=== PATIENT | female | born 1935 | race Caucasian/White ===

== ENCOUNTER 2018-06-18 14:02 | Inpatient (IN) | payer MEDICARE, OTHER ==
[~2018-06-18] VITALS: Ht 170.2 cm; Wt 84.3 kg
[2018-06-18 14:12] VITALS: Ht 170.2 cm; Wt 84.3 kg
[2018-06-18] MEDS ORDERED: CEFTRIAXONE 1 GM/50 ML (PMX) 50 ML IVPB ONE (16:00)
[2018-06-18] MEDS ORDERED: AMLO-145 PO (16:00)
[2018-06-18] MEDS ORDERED: ESOM40CA51 PO (16:01)
[2018-06-18] MEDS ORDERED: LOSA50TA14 PO (16:01)
[2018-06-18] MEDS ORDERED: BISA5TAB6 PO (16:01)
[2018-06-18] MEDS ORDERED: MEMA10TA PO (16:02)
[2018-06-18] MEDS ORDERED: ACET-2047 PO (16:04)
[2018-06-18] MEDS ORDERED: ZOLP5TAB7 PO (16:05)
[2018-06-18] MEDS ORDERED: SOD CHLORIDE 0.9% 100 ML ONE (16:27)
[2018-06-18] MEDS ORDERED: IODIXANOL LOCM 100 ML BTL ONE (16:27)
[2018-06-18] MEDS ORDERED: VANCOMYCIN 1 GM (PMX) 250 ML IVPB STA (16:31)
[2018-06-18] MEDS ORDERED: SOD CHLORIDE 0.9% 1,000 ML IV STA (16:31)
[2018-06-18] MEDS ORDERED: CEFEPIME 1GM/50 ML (PMX) 50 ML IVPB STA (16:31)
--- NOTE | 2018-06-18 16:35 | ERD ---
ER Documentation Chief Complaint Chief Complaint HYPOXIA, GENERALIZED WEAKNESS X 3 DAYS HPI 83-year-old female who presents to the emergency room for evaluation of generalized weakness. EMS reports that the patient had low oxygen saturation of 74% given full facemask however the facility noted normal oxygen saturation and patient had normal oxygen saturation in the emergency room. Patient denied any significant shortness of breath, no pain, no pleuritic discomfort. She just describes 3 days of generalized weakness. ROS All systems reviewed and are negative except as per history of present illness. Medications Home Meds Reported Medications Zolpidem Tartrate* (Zolpidem Tartrate*) 5 Mg Tablet, 5 MG PO QHS PRN for INSOMNIA, #30 TAB 06/18/18 Acetaminophen* (Acetaminophen*) 650 Mg Tablet, 650 MG PO Q4 PRN for PAIN AND OR ELEVATED TEMP, #30 TAB 06/18/18 Memantine* (Namenda*) 10 Mg Tablet, 10 MG PO DAILY, #30 TAB 06/18/18 Losartan Potassium* (Losartan Potassium*) 50 Mg Tablet, 50 MG PO DAILY, TAB 06/18/18 Esomeprazole Magnesium (Esomeprazole Magnesium) 40 Mg Capsule.dr, 40 MG PO BE FORE BREAKFAST, #30 CAP 06/18/18 Bisacodyl* (Bisacodyl*) 5 Mg Tablet.dr, 5 MG PO DAILY PRN for CONSTIPATION, TAB 06/18/18 Amlodipine Besylate* (Amlodipine Besylate*) 5 Mg Tablet, 5 MG PO DAILY, #30 TAB 06/18/18 Allergies Allergies: Coded Allergies: No Known Allergy (Unverified , 06/18/18) PMhx/Soc History of Surgery: Yes (PARTIAL THYROIDECTOMY) Anesthesia Reaction: No Hx Neurological Disorder: No Hx Respiratory Disorders: No Hx Cardiac Disorders: No Hx Psychiatric Problems: No Hx Miscellaneous Medical Probl: Yes (GERD, HTN) Hx Alcohol Use: No Hx Substance Use: No Hx Tobacco Use: No Smoking Status: Never smoker FmHx Family History: No diabetes Physical Exam Vitals Vital Signs Date Temp Pulse Resp B/P (MAP) Pulse Ox O2 O2 Flow FiO2 Time Delivery Rate 06/18/18 65 19 155/66 97 Room Air 17:30 (95) 06/18/18 74 24 119/102 97 16:00 (108) 06/18/18 2 14:30 06/18/18 98.3 72 18 140/74 98 14:12 (96) Physical Exam General: Well developed, well nourished, no acute distress Head: Normocephalic, atraumatic. Eyes: Pupils equally reactive, EOM intact ENT: Moist mucous membranes Neck: Supple, no lymphadenopathy Respiratory: Lungs clear bilaterally, no distress Cardiovascular: RRR, no murmurs, rubs, or gallops Abdominal: Soft, non-tender, non-distended, no peritoneal signs : Deferred MSK: No edema, no unilateral swelling, 5/5 strength Neurologic: Alert and oriented, moving all extremities, normal speech, no focal weakness, no cerebellar signs Skin: No rash Psych: Normal mood Result Diagram: 06/18/18 1425 06/18/18 1425 Results 24 hrs Laboratory Tests Test 06/18/18 14:10 06/18/18 14:25 06/18/18 14:35 06/18/18 15:00 Blood Gas Blood arterial Specimen Source Arterial Blood 06/18/2018 2:40: Date Drawn 58 PM Arterial Blood 7.432 pH (Temp corrected ) Arterial Blood 33.3 mmhg pCO2 (Temp correct) Arterial Blood 64.9 mmHG pO2 (Temp corrected ) Arterial Blood 21.7 mmol/L HCO3 Arterial Blood -1.8 mmol/L Base Excess Arterial Blood 93.2 mmHG Oxygen Saturati on Graham Test ACCEPTAB Arterial Blood Right Radial Gas Puncture Site Arterial 0.2 % Blood Carboxyhe moglobin Arterial Blood 0.2 % Methemoglobin Blood Gas A-a 45.0 mmHg O2 Differential Oxyhemoglobin 92.8 % Percent Blood Gas 37.0 C Temperature Blood Gas ROOM AIR Modality FiO2 21.0 % Blood Gas .DSally Notified Whom Blood Gas 06/18/2018 2:48: Notified Time 30 PM White Blood 10.6 10^3/ul Count Red Blood Count 4.29 10^6/ul Hemoglobin 13.3 g/dl Hematocrit 40.7 % Mean 94.9 fl Corpuscular Volume Mean 31.0 pg Corpuscular Hemoglobin Mean 32.7 g/dl Corpuscular Hemoglobin Conc ent Red Cell 12.2 % Distribution Width Platelet Count 183 10^3/UL Mean Platelet 11.2 fl Volume Immature 0.300 % Granulocytes % Neutrophils % 79.2 % Lymphocytes % 9.7 % Monocytes % 9.1 % Eosinophils % 1.4 % Basophils % 0.3 % Nucleated Red 0.0 /100WBC Blood Cells % Immature 0.030 10^3/ul Granulocytes # Neutrophils # 8.4 10^3/ul Lymphocytes # 1.0 10^3/ul Monocytes # 1.0 10^3/ul Eosinophils # 0.2 10^3/ul Basophils # 0.0 10^3/ul Nucleated Red 0.0 10^3/ul Blood Cells # Prothrombin 14.0 Sec Time Prothrombin 1.1 Time Ratio INR 1.07 International Normalized Rati o Activated 26.1 Sec Partial Thrombo plast Time Sodium Level 144 mmol/L Potassium Level 4.2 mmol/L Chloride Level 106 mmol/L Carbon Dioxide 26 mmol/L Level Anion Gap 12 Blood Urea 42 mg/dl Nitrogen Creatinine 1.29 mg/dl Est Glomerular mL/min Filtrat Rate mL/min Glucose Level 141 mg/dl Calcium Level 9.3 mg/dl Total Bilirubin 0.1 mg/dl Direct 0.00 mg/dl Bilirubin Indirect 0.1 mg/dl Bilirubin Aspartate Amino 16 IU/L Transf (AST/SGO T) Alanine 24 IU/L Aminotransferas e (ALT/SGPT) Alkaline 97 IU/L Phosphatase Troponin I < 0.012 ng/ml B-Type 177 PG/ML Natriuretic Peptide Total Protein 6.5 g/dl Albumin 3.3 g/dl Globulin 3.20 g/dl Albumin/Globuli 1.03 n Ratio POC Venous 1.9 mmol/L Lactate Urine Color YELLOW Urine Clarity TURBID Urine pH 8.0 Urine Specific 1.020 [place] Urine Ketones NEGATIVE mg/dL Urine Nitrite POSITIVE mg/dL Urine Bilirubin NEGATIVE mg/dL Urine NEGATIVE mg/dL Urobilinogen Urine Leukocyte 2+ Viviana/ul Esterase Urine 53 /HPF Microscopic RBC Urine > 182 /HPF Microscopic WBC Urine Bacteria FEW /HPF Urine NEGATIVE mg/dL Hemoglobin Urine Glucose NEGATIVE mg/dL Urine Total 3+ mg/dl Protein Test 06/18/18 16:27 POC Venous 1.4 mmol/L Lactate Current Medications Medications Dose Sig/Kris Start Time Status Last (Trade) Ordered Route PRN Stop Time Admin Dose Reason Admin Ceftriaxone 50 ml @ ONCE ONCE 06/18/18 DC 06/18/18 Sodium 100 mls/hr IVPB 16:00 16:00 06/18/18 16:29 IV Flush 10 ml STK-MED 06/18/18 DC (NS 10 ml) ONCE .ROUTE 16:27 06/18/18 16:28 Sodium 100 ml @ ud STK-MED 06/18/18 DC Chloride ONCE .ROUTE 16:27 06/18/18 16:28 Iodixanol 100 ml STK-MED 06/18/18 DC (Visipaque ONCE .ROUTE 16:27 Locm) 06/18/18 16:28 Sodium 1,000 ml @ Q1H STAT 06/18/18 DC 06/18/18 Chloride 1,000 mls/hr IV 16:31 16:48 06/18/18 17:30 Cefepime HCl 50 ml @ ONCE STAT 06/18/18 DC 06/18/18 100 mls/hr IVPB 16:31 16:49 06/18/18 17:00 Vancomycin 250 ml @ ONCE STAT 06/18/18 06/18/18 HCl 125 mls/hr IVPB 16:31 17:51 06/18/18 18:30 Enoxaparin 65 mg ONCE SC 06/18/18 DC 06/18/18 Sodium 17:30 17:28 (Lovenox) 06/18/18 17:35 Ondansetron 4 mg ER BRIDGE 06/18/18 DC HCl (Zofran PRN IV 17:30 Inj) NAUSEA/VOMITI 06/18/18 17:34 NG 650 mg ER BRIDGE 06/18/18 DC Acetaminophen PRN PO 17:30 (Tylenol .MILD PAIN 06/18/18 17:34 Tab) 1-3 OR TEMP Rivaroxaban 15 mg BID WITH 06/19/18 (Xarelto) MEALS PO 06:00 Ceftriaxone 50 ml @ Q24H IVPB 06/19/18 Sodium 100 mls/hr 16:00 650 mg Q4 PRN PO 06/18/18 Acetaminophen MILD 17:30 (Tylenol PAIN(1-3)OR Tab) ELEVATED TEMP Amlodipine 5 mg DAILY PO 06/19/18 Besylate 09:00 (Norvasc) Bisacodyl 5 mg DAILY PRN 06/18/18 (Dulcolax) PO 17:30 CONSTIPATION Zolpidem 5 mg QHS PRN 06/18/18 Tartrate PO INSOMNIA 17:30 (Ambien) Enoxaparin 65 mg ONCE ONCE 06/18/18 DC Sodium SC 18:00 (Lovenox) 06/18/18 18:01 Procedures/MDM EKG, MONITORS, & DIAGNOSTIC IMAGING: EKG: I reviewed and interpreted a 12-lead EKG. Rhythm: Normal sinus rhythm ST Changes: No contiguous ST segment elevations T waves: No contiguous T wave inversions Impression: [No evidence of acute cardiac ischemia] CXR: IMPRESSION: Focal right upper lobe infiltrate, suspicious for pneumonia. Mild bibasilar atelectatic changes. CTPA: IMPRESSION: 1. Prominent pulmonary emboli, most extensive in the right lower lobe. Additional segmental involvement in the right upper lobe and left lower lobe. 2. Moderate cardiomegaly. 3. Large hiatal hernia, with most of the stomach above the diaphragm. 4. Bibasilar atelectasis. Density projecting in the right upper lung on x-ray likely reflects a component of edema as well as tortuosity of the vessels. 5. Probable left thyroid nodule, 1.4 cm. 6. Small sclerotic focus in the right T2 transverse process, which may reflect a bone island. Call report with critical findings made to Dr. Mcgrath. RPTAT: HBST LAB INTERPRETATION: * White blood cell count is normal with only slight left shift. No anemia * Chemistry profile with mild creatinine elevation of 1.29. Lactic acid is normal at 1.9. Negative troponin. * Urinalysis consistent with UTI * Arterial blood gas showing evidence of mild shunt physiology MEDICAL DECISION MAKING: Patient presents to the emergency room with generalized weakness and a report of hypoxia. Differential is broad and includes pneumonia, mucous plugging or pulmonary embolism. Given moderate risk criteria Wells would suggest CTPA. No indication for d-dimer. The patient does not have sirs criteria therefore inconsistent with sepsis. However sepsis screening will be initiated including blood cultures. Lactic acid is reassuring. ER COURSE: * The patient had a urinalysis that showed evidence of urinary tract infection. Ceftriaxone was given chest x-ray resulted showing evidence of possible pneumonia. The patient is at risk for healthcare associated pneumonia. * Patient was given vancomycin and cefepime. * The patient does not meet Sirs criteria in the emergency room setting. This is not consistent with sepsis. Gentle fluids provided. * The patient CTPA shows evidence of pulmonary embolism. This is more likely consistent with PE and possible infection rather than pneumonia. Empiric antibiotics already provided. No contraindications to anticoagulation. Love nox provided. CONSULTATION: [None] DISPOSITION PLAN: Accepting care team and consultations: I discussed the current laboratory data, diagnostic imaging and emergency care provided. Admitting team: Dr Rose Admitting team indication: Insurance directed Departure Diagnosis: Primary Impression: Acute pulmonary embolism Pulmonary embolism type: unspecified Acute cor pulmonale presence: without acute cor pulmonale Qualified Codes: I26.99 - Other pulmonary embolism wit hout acute cor pulmonale Additional Impressions: Urinary tract infection Urinary tract infection type: acute cystitis Hematuria presence: without hematuria Qualified Codes: N30.00 - Acute cystitis without hematuria Generalized weakness Condition: Stable SAMIA MCGRATH MD Jun 18, 2018 16:35
[2018-06-18] MEDS ORDERED: ZOLPIDEM 5 MG TAB PO PRN (17:30)
[2018-06-18] MEDS ORDERED: BISACODYL (EC) 5 MG TAB PO PRN (17:30)
[2018-06-18] MEDS ORDERED: ACETAMINOPHEN 325 MG TAB PO PRN ×2 (17:30)
[2018-06-18] MEDS ORDERED: ENOXAPARIN 80 MG/0.8 ML SYG SC SCH (17:30)
[2018-06-18] MEDS ORDERED: ONDANSETRON 4 MG INJ IV PRN (17:30)
[2018-06-18] MEDS: CEFTRIAXONE 1 GM/50 ML (PMX) 50 ML IVPB SCH (17:51)
[2018-06-18] MEDS ORDERED: ENOXAPARIN 80 MG/0.8 ML SYG SC ONE (18:00)
[2018-06-18 19:00] VITALS: BP 184/81; PULSE 75; RESP 18
--- NOTE | 2018-06-18 19:01 | HP ---
Date/Time of Note Date/Time of Note DATE: 06/18/18 TIME: 18:55 Assessment/Plan VTE Prophylaxis SCD contraindicated: low risk/ambulating Pharmacological prophylaxis: heparin, rivaroxaban Lines/Catheters IV [facility] Saline Lock Assessment/Plan Hospital Course 83 yo female with dementia who presents with pulmonary embolism Pulmonary embolism causing hypoxia: - Has been given lovenox in ED - Will start therapeutic Xarelto 15 BID with first dose 12 hours after lovenox given tomorrow AM - O2 as needed МАРИНА vs CKD: - Hold losartan and monitor creatinine h/o thyroidectomy: - Check TSH Hypertension: - Amlodipine Dc back to [facility] when off of oxygen. Transfer documents don't include a POLST form. Also states she has no known relatives. SW/Case management consult Result Diagram: 06/18/18 1425 06/18/18 1425 Results 24hrs Laboratory Tests Test 06/18/18 14:10 06/18/18 14:25 06/18/18 14:35 06/18/18 15:00 Blood Gas Blood arterial Specimen Source Arterial Blood 06/18/2018 2:40:5 Date Drawn 8 PM Arterial Blood pH 7.432 (Temp corrected) Arterial Blood 33.3 L pCO2 (Temp correct) Arterial Blood 64.9 L pO2 (Temp corrected) Arterial Blood 21.7 L HCO3 Arterial Blood -1.8 Base Excess Arterial Blood 93.2 L Oxygen Saturation Graham Test ACCEPTAB Arterial Blood Right Radial Gas Puncture Site Arterial 0.2 Blood Carboxyhemo globin Arterial Blood 0.2 Methemoglobin Blood Gas A-a O2 45.0 H Differential Oxyhemoglobin 92.8 L Percent Blood Gas 37.0 Temperature Blood Gas ROOM AIR Modality FiO2 21.0 Blood Gas M.D. Notified Whom Blood Gas 06/18/2018 2:48:3 Notified Time 0 PM White Blood Count 10.6 Red Blood Count 4.29 Hemoglobin 13.3 Hematocrit 40.7 Mean Corpuscular 94.9 Volume Mean Corpuscular 31.0 Hemoglobin Mean Corpuscular 32.7 Hemoglobin Concen t Red Cell 12.2 Distribution Width Platelet Count 183 Mean Platelet 11.2 H Volume Immature 0.300 Granulocytes % Neutrophils % 79.2 H Lymphocytes % 9.7 L Monocytes % 9.1 Eosinophils % 1.4 Basophils % 0.3 Nucleated Red 0.0 Blood Cells % Immature 0.030 Granulocytes # Neutrophils # 8.4 H Lymphocytes # 1.0 Monocytes # 1.0 H Eosinophils # 0.2 Basophils # 0.0 Nucleated Red 0.0 Blood Cells # Prothrombin Time 14.0 Prothrombin Time 1.1 Ratio INR International 1.07 Normalized Ratio Activated 26.1 Partial Thrombopl ast Time Sodium Level 144 Potassium Level 4.2 Chloride Level 106 Carbon Dioxide 26 Level Anion Gap 12 Blood Urea 42 H Nitrogen Creatinine 1.29 H Est Glomerular Filtrat Rate mL/min Glucose Level 141 Calcium Level 9.3 Total Bilirubin 0.1 L Direct Bilirubin 0.00 Indirect 0.1 Bilirubin Aspartate Amino 16 Transf (AST/SGOT) Alanine 24 Aminotransferase (ALT/SGPT) Alkaline 97 Phosphatase Troponin I < 0.012 B-Type 177 Natriuretic Peptide Total Protein 6.5 Albumin 3.3 Globulin 3.20 Albumin/Globulin 1.03 Ratio POC Venous 1.9 Lactate Urine Color YELLOW Urine Clarity TURBID A Urine pH 8.0 Urine Specific 1.020 [place] Urine Ketones NEGATIVE Urine Nitrite POSITIVE A Urine Bilirubin NEGATIVE Urine NEGATIVE Urobilinogen Urine Leukocyte 2+ H Esterase Urine Microscopic 53 H RBC Urine Microscopic > 182 H WBC Urine Bacteria FEW A Urine Hemoglobin NEGATIVE Urine Glucose NEGATIVE Urine Total 3+ H Protein Test 06/18/18 16:27 POC Venous 1.4 Lactate HPI/ROS Admit Date/Time Admit Date/Time Jun 18, 2018 at 17:26 Hx of Present Illness 83 yo female with h/o dementia, hypertension, otherwise unclear who presents fr [facility] with hypoxia Patient clearly with dementia and is unable to provide a history Documentation states she had some respiratory distress and found to be hypoxic so brought to ED Here, saturating 70s on room air. CT-PE was performed showing mulitfocal PEs She has been started on lovenox Denies physical complaints to me PMH/Family/Social Past Medical History Dementia Hypertension Medications Current Medications Rivaroxaban (Xarelto) 15 mg BID WITH MEALS PO ; Start 06/19/18 at 06:00 Ceftriaxone Sodium 50 ml @ 100 mls/hr Q24H IVPB ; Start 06/19/18 at 16:00 Acetaminophen (Tylenol Tab) 650 mg Q4 PRN PO MILD PAIN(1-3)OR ELEVATED TEMP; Start 06/18/18 at 17:30 Amlodipine Besylate (Norvasc) 5 mg DAILY PO ; Start 06/19/18 at 09:00 Bisacodyl (Dulcolax) 5 mg DAILY PRN PO CONSTIPATION; Start 06/18/18 at 17:30 Zolpidem Tartrate (Ambien) 5 mg QHS PRN PO INSOMNIA; Start 06/18/18 at 17:30 Coded Allergies: No Known Allergy (Unverified , 06/18/18) Past Surgical History Thyroidectomy Family History Significant Family History: no pertinent family hx Social History Alcohol Use: none Smoking Status: Never smoker Drug Use: none Exam/Review of Systems Vital Signs Vitals Vital Signs Date Temp Pulse Resp B/P (MAP) Pulse Ox O2 O2 Flow FiO2 Time Delivery Rate 06/18/18 88 18 153/113 97 Room Air 18:21 (126) 06/18/18 2.0 18:11 06/18/18 98.3 14:12 Exam Exam Alert, oriented to her name, thinks is 1931 Knows "hosptial". Harness Tier't say what city she is in breathing comfortably, clear lungs Flat neck veins RRR Abdomen soft nt nd Ext wihtout tenderness or swelling ANNIA CAMPBELL MD Jun 18, 2018 19:01
[2018-06-18] MEDS ORDERED: NACL 0.9% 3 ML SYG IV SCH (19:30)
[2018-06-18 19:55] VITALS: BP 139/73; PULSE 72; RESP 18
[2018-06-18 20:00] VITALS: PULSE 79
[2018-06-18 23:37] VITALS: BP 147/71; PULSE 73; RESP 20
[2018-06-19] VITALS (11 sets, daily range): BP systolic 119–148; BP diastolic 65–71; PULSE 56–78; RESP 16–20
[2018-06-19] MEDS: RIVAROXABAN 15 MG TABLET PO SCH ×3 (05:43→18:33)
--- NOTE | 2018-06-19 07:29 | NUR ---
Pt. a/o x1. Pt. on tele monitor. Skin photos taken. Pt. in stable condition. Bed in lowest position, call light within reach. Pt turned Q2H. Skin kept clean, dry, and intact. Will endorse continuity of care to day shift.
[2018-06-19] MEDS: AMLODIPINE 5 MG TAB PO SCH (09:07)
--- NOTE | 2018-06-19 10:50 | NUR ---
Case Mngt: Patient lives in an Assisted Living Facility - [facility] in [place] ([phone]). She has lived in that place for 8 years and no other known relatives. Spoke with Steph at [facility] and per Steph they will take her back. Also, for more information the health administrator's name for that [facility] is James Chu and she can be contacted tomorrow. Per Steph, [facility] is the agency the patient uses and would prefer a SNF around the area if the patient needs one. CM will follow up.
--- NOTE | 2018-06-19 10:56 | NUR ---
HORACE Note: Note SW requested referral requesting that SW assist in locating the patients family. Patient was BIB EMS from [facility] located at: [address] [place] [id number] (ph: [phone]). SW contacted the facility to obtain emergency contact information. SW spoke with Bethany at the facility. Per Bethany, the patient has lived there for 8 years and has no family. The patient does not have a POLST or AHCD on file with the facility . Per Bethany, the patient never has visitors at the facility. The patient has become close to several staff members at the facility over time. SW spoke with bedside RN and informed RN of the above mentioned information. Per RN patient is alert and confused. CM also aware that patient is without family/friends. SW will remain available to support with discharge planning as needed.
--- NOTE | 2018-06-19 11:14 | NUR ---
Case Mngt F/U: Communicated with Dr. Rose and informed him that patient lived in an GROUP [facility] not SNF. Per Dr. Rose, patient can go back to GROUP HOME not SNF. Please call [facility] tomorrow if patient is stable for discharge.
--- NOTE | 2018-06-19 14:18 | PN ---
Date/Time of Note Date/Time of Note DATE: 06/19/18 TIME: 14:17 Assessment/Plan VTE Prophylaxis Risk score (from Ns)>0 risk: 4 SCD applied (from Ns): Yes Pharmacological prophylaxis: rivaroxaban Lines/Catheters IV Catheter Type (from Nrs): Saline Lock Urinary Cath still in place: No Assessment/Plan Hospital Course 83 yo female with dementia who presents with pulmonary embolism Pulmonary embolism causing hypoxia: - Started therapeutic Xarelto 15 BID. Need to determine which NOAC can be given at facility - Hypoxia resolved МАРИНА: - Resolved h/o thyroidectomy: - Check TSH Hypertension: - Amlodipine Dc back to correction when off of oxygen. Transfer documents don't include a POLST form. Also states she has no known relatives. SW/Case management consult Result Diagram: 06/19/18 0510 06/19/18 0510 Results 24hrs Laboratory Tests Test 06/18/18 14:25 06/18/18 14:35 06/18/18 15:00 06/18/18 16:27 White Blood Count 10.6 Red Blood Count 4.29 Hemoglobin 13.3 Hematocrit 40.7 Mean Corpuscular 94.9 Volume Mean Corpuscular 31.0 Hemoglobin Mean Corpuscular 32.7 Hemoglobin Concent Red Cell 12.2 Distribution Width Platelet Count 183 Mean Platelet Volume 11.2 H Immature 0.300 Granulocytes % Neutrophils % 79.2 H Lymphocytes % 9.7 L Monocytes % 9.1 Eosinophils % 1.4 Basophils % 0.3 Nucleated Red Blood 0.0 Cells % Immature 0.030 Granulocytes # Neutrophils # 8.4 H Lymphocytes # 1.0 Monocytes # 1.0 H Eosinophils # 0.2 Basophils # 0.0 Nucleated Red Blood 0.0 Cells # Prothrombin Time 14.0 Prothrombin Time 1.1 Ratio INR International 1.07 Normalized Ratio Activated 26.1 Partial Thromboplast Time Sodium Level 144 Potassium Level 4.2 Chloride Level 106 Carbon Dioxide Level 26 Anion Gap 12 Blood Urea Nitrogen 42 H Creatinine 1.29 H Est Glomerular Filtrat Rate mL/min Glucose Level 141 Calcium Level 9.3 Total Bilirubin 0.1 L Direct Bilirubin 0.00 Indirect Bilirubin 0.1 Aspartate Amino 16 Transf (AST/SGOT) Alanine 24 Aminotransferase (AL T/SGPT) Alkaline Phosphatase 97 Troponin I < 0.012 B-Type Natriuretic 177 Peptide Total Protein 6.5 Albumin 3.3 Globulin 3.20 Albumin/Globulin 1.03 Ratio POC Venous Lactate 1.9 1.4 Urine Color YELLOW Urine Clarity TURBID A Urine pH 8.0 Urine Specific 1.020 [place] Urine Ketones NEGATIVE Urine Nitrite POSITIVE A Urine Bilirubin NEGATIVE Urine Urobilinogen NEGATIVE Urine Leukocyte 2+ H Esterase Urine Microscopic 53 H RBC Urine Microscopic > 182 H WBC Urine Bacteria FEW A Urine Hemoglobin NEGATIVE Urine Glucose NEGATIVE Urine Total Protein 3+ H Test 06/18/18 19:12 06/19/18 05:10 Lactic Acid Level 1.1 White Blood Count 7.0 # Red Blood Count 3.75 L Hemoglobin 11.8 L Hematocrit 35.7 L Mean Corpuscular 95.2 Volume Mean Corpuscular 31.5 Hemoglobin Mean Corpuscular 33.1 Hemoglobin Concent Red Cell 12.0 Distribution Width Platelet Count 156 Mean Platelet Volume 11.1 H Immature 0.300 Granulocytes % Neutrophils % 63.9 Lymphocytes % 19.9 Monocytes % 10.1 Eosinophils % 5.4 Basophils % 0.4 Nucleated Red Blood 0.0 Cells % Immature 0.020 Granulocytes # Neutrophils # 4.5 Lymphocytes # 1.4 Monocytes # 0.7 Eosinophils # 0.4 Basophils # 0.0 Nucleated Red Blood 0.0 Cells # Sodium Level 145 H Potassium Level 3.8 Chloride Level 112 H Carbon Dioxide Level 25 Anion Gap 8 Blood Urea Nitrogen 33 H Creatinine 0.94 Est Glomerular Filtrat Rate mL/min Glucose Level 110 Hemoglobin A1c 6.2 H Calcium Level 8.7 Total Bilirubin 0.3 Direct Bilirubin 0.00 Indirect Bilirubin 0.3 Aspartate Amino 13 L Transf (AST/SGOT) Alanine 23 Aminotransferase (AL T/SGPT) Alkaline Phosphatase 79 Total Protein 5.1 #L Albumin 2.5 L Globulin 2.60 Albumin/Globulin 0.96 Ratio Subjective 24 Hr Interval Summary Free Text/Dictation Doing great Hypoxia resolved Unable to participate in history given dementia but denies any complaints Exam/Review of Systems Exam Vitals Vital Signs Date Temp Pulse Resp B/P (MAP) Pulse Ox O2 O2 Flow FiO2 Time Delivery Rate 06/19/18 63 12:01 06/19/18 97.7 18 124/69 93 Room Air 11:30 (87) 06/18/18 2.0 18:11 Exam Comfortable Breathing normally Clear lungs Results Results 24hrs Laboratory Tests Test 06/18/18 14:25 1/26/19 14:35 06/18/18 15:00 06/18/18 16:27 White Blood Count 10.6 Red Blood Count 4.29 Hemoglobin 13.3 Hematocrit 40.7 Mean Corpuscular 94.9 Volume Mean Corpuscular 31.0 Hemoglobin Mean Corpuscular 32.7 Hemoglobin Concent Red Cell 12.2 Distribution Width Platelet Count 183 Mean Platelet Volume 11.2 H Immature 0.300 Granulocytes % Neutrophils % 79.2 H Lymphocytes % 9.7 L Monocytes % 9.1 Eosinophils % 1.4 Basophils % 0.3 Nucleated Red Blood 0.0 Cells % Immature 0.030 Granulocytes # Neutrophils # 8.4 H Lymphocytes # 1.0 Monocytes # 1.0 H Eosinophils # 0.2 Basophils # 0.0 Nucleated Red Blood 0.0 Cells # Prothrombin Time 14.0 Prothrombin Time 1.1 Ratio INR International 1.07 Normalized Ratio Activated 26.1 Partial Thromboplast Time Sodium Level 144 Potassium Level 4.2 Chloride Level 106 Carbon Dioxide Level 26 Anion Gap 12 Blood Urea Nitrogen 42 H Creatinine 1.29 H Est Glomerular Filtrat Rate mL/min Glucose Level 141 Calcium Level 9.3 Total Bilirubin 0.1 L Direct Bilirubin 0.00 Indirect Bilirubin 0.1 Aspartate Amino 16 Transf (AST/SGOT) Alanine 24 Aminotransferase (AL T/SGPT) Alkaline Phosphatase 97 Troponin I < 0.012 B-Type Natriuretic 177 Peptide Total Protein 6.5 Albumin 3.3 Globulin 3.20 Albumin/Globulin 1.03 Ratio POC Venous Lactate 1.9 1.4 Urine Color YELLOW Urine Clarity TURBID A Urine pH 8.0 Urine Specific 1.020 [place] Urine Ketones NEGATIVE Urine Nitrite POSITIVE A Urine Bilirubin NEGATIVE Urine Urobilinogen NEGATIVE Urine Leukocyte 2+ H Esterase Urine Microscopic 53 H RBC Urine Microscopic > 182 H WBC Urine Bacteria FEW A Urine Hemoglobin NEGATIVE Urine Glucose NEGATIVE Urine Total Protein 3+ H Test 06/18/18 19:12 06/19/18 05:10 Lactic Acid Level 1.1 White Blood Count 7.0 # Red Blood Count 3.75 L Hemoglobin 11.8 L Hematocrit 35.7 L Mean Corpuscular 95.2 Volume Mean Corpuscular 31.5 Hemoglobin Mean Corpuscular 33.1 Hemoglobin Concent Red Cell 12.0 Distribution Width Platelet Count 156 Mean Platelet Volume 11.1 H Immature 0.300 Granulocytes % Neutrophils % 63.9 Lymphocytes % 19.9 Monocytes % 10.1 Eosinophils % 5.4 Basophils % 0.4 Nucleated Red Blood 0.0 Cells % Immature 0.020 Granulocytes # Neutrophils # 4.5 Lymphocytes # 1.4 Monocytes # 0.7 Eosinophils # 0.4 Basophils # 0.0 Nucleated Red Blood 0.0 Cells # Sodium Level 145 H Potassium Level 3.8 Chloride Level 112 H Carbon Dioxide Level 25 Anion Gap 8 Blood Urea Nitrogen 33 H Creatinine 0.94 Est Glomerular Filtrat Rate mL/min Glucose Level 110 Hemoglobin A1c 6.2 H Calcium Level 8.7 Total Bilirubin 0.3 Direct Bilirubin 0.00 Indirect Bilirubin 0.3 Aspartate Amino 13 L Transf (AST/SGOT) Alanine 23 Aminotransferase (AL T/SGPT) Alkaline Phosphatase 79 Total Protein 5.1 #L Albumin 2.5 L Globulin 2.60 Albumin/Globulin 0.96 Ratio Medications Medication Current Medications Rivaroxaban (Xarelto) 15 mg BID WITH MEALS PO Last administered on 06/19/18at 09:07; Admin Dose 15 MG; Start 06/19/18 at 06:00 Ceftriaxone Sodium 50 ml @ 100 mls/hr Q24H IVPB ; Start 06/19/18 at 16:00 Acetaminophen (Tylenol Tab) 650 mg Q4 PRN PO MILD PAIN(1-3)OR ELEVATED TEMP; Start 06/18/18 at 17:30 Amlodipine Besylate (Norvasc) 5 mg DAILY PO Last administered on 06/19/18at 09:07; Admin Dose 5 MG; Start 06/19/18 at 09:00 Bisacodyl (Dulcolax) 5 mg DAILY PRN PO CONSTIPATION; Start 06/18/18 at 17:30 Zolpidem Tartrate (Ambien) 5 mg QHS PRN PO INSOMNIA; Start 06/18/18 at 17:30 IV Flush (NS 3 ml) 3 ml PER PROTOCOL IV ; Start 06/18/18 at 19:30 ANNIA CAMPBELL MD Jun 19, 2018 14:18
--- NOTE | 2018-06-19 18:57 | NUR ---
Denies any resp distress. Pt remain confused/disoriented. Reorientation to surroundings provided. VSS, afebrile. Per Dr. Rose, able to go back to assisted living tomorrow 06/20/2018 once stable. CM aware for arrangements. Continue with plan of care. Needs attended.
[2018-06-20] VITALS (9 sets, daily range): BP systolic 123–136; BP diastolic 62–78; PULSE 52–87; RESP 16–18
--- NOTE | 2018-06-20 06:36 | NUR ---
Pt. in stable condition, no s/s of SOB. Pt. confused. Bed alarm on, bed in lowest position, call light within reach. Pt. denied any pain upon my shift. No significant changes noted. Will endorse.
[2018-06-20] MEDS: AMLODIPINE 5 MG TAB PO SCH (08:18)
[2018-06-20] MEDS: RIVAROXABAN 15 MG TABLET PO SCH ×2 (08:18→17:52)
--- NOTE | 2018-06-20 11:44 | NUR ---
GENNA UPDATE NOTES: Plan is for short term SNF per rechiwot prior to returning to [facility]. Called [facility] and made aware. Sent SNF inquiry to [facility], [facility], [facility], and [facility] pending bed confirmation. Will followup as needed. Delbert VAIL [phone] Addendum: 06/20/18 at 1332 by DELBERT FIELDS RN ACCEPTED AT [facility] ROOM [address] CONFIRMED BY VICKIE FROM ADMITTING [phone]. AWAITING FOR DC ORDERS WHEN MEDICALLY CLEARED.
[2018-06-20] MEDS: CEFTRIAXONE 1 GM/50 ML (PMX) 50 ML IVPB SCH (15:27)
--- NOTE | 2018-06-20 15:48 | PN ---
Date/Time of Note Date/Time of Note DATE: 06/20/18 TIME: 15:47 Assessment/Plan VTE Prophylaxis Risk score (from Ns)>0 risk: 6 SCD applied (from Ns): Yes Pharmacological prophylaxis: rivaroxaban Lines/Catheters IV Catheter Type (from Nrs): Saline Lock Urinary Cath still in place: No Assessment/Plan Hospital Course 83 yo female with dementia who presents with pulmonary embolism Pulmonary embolism causing hypoxia: - Started therapeutic Xarelto 15 BID. -Continues to require supplemental O2 МАРИНА: - Resolved h/o thyroidectomy: - Check TSH Hypertension: - Amlodipine Dementia with debility -Patient is too low functioning for return to assisted living and requires skilled nursing placement DC planning: DC to skilled nursing tomorrow Result Diagram: 06/19/18 0510 06/19/18 0510 Subjective 24 Hr Interval Summary Constitutional: disoriented Exam/Review of Systems Exam Vitals Vital Signs Date Temp Pulse Resp B/P (MAP) Pulse Ox O2 O2 Flow FiO2 Time Delivery Rate 06/20/18 98.0 67 16 123/63 97 Nasal 2.0 15:38 (83) Cannula Intake and Output 06/19/18 06/19/18 06/20/18 1515:00 23:00 07:00 IntakeIntake Total 50 ml 700 ml 300 ml BalanceBalance 50 ml 700 ml 300 ml Constitutional: non-verbal Respiratory: clear to auscultation Cardiovascular: regular rate and rhythm Gastrointestinal: soft; No distended Musculoskeletal: nl extremities to inspection Medications Medication Current Medications Rivaroxaban (Xarelto) 15 mg BID WITH MEALS PO Last administered on 06/20/18at 08:18; Admin Dose 15 MG; Start 06/19/18 at 06:00 Ceftriaxone Sodium 50 ml @ 100 mls/hr Q24H IVPB Last administered on 06/20/18at 15:27; Admin Dose 100 MLS/HR; Start 06/19/18 at 16:00 Acetaminophen (Tylenol Tab) 650 mg Q4 PRN PO MILD PAIN(1-3)OR ELEVATED TEMP; Start 06/18/18 at 17:30 Amlodipine Besylate (Norvasc) 5 mg DAILY PO Last administered on 06/20/18at 08:18; Admin Dose 5 MG; Start 06/19/18 at 09:00 Bisacodyl (Dulcolax) 5 mg DAILY PRN PO CONSTIPATION; Start 06/18/18 at 17:30 Zolpidem Tartrate (Ambien) 5 mg QHS PRN PO INSOMNIA; Start 06/18/18 at 17:30 IV Flush (NS 3 ml) 3 ml PER PROTOCOL IV ; Start 06/18/18 at 19:30 ELBA DUMAS Jun 20, 2018 15:48
--- NOTE | 2018-06-20 19:02 | NUR ---
Noted pt with SOB on exertion, placed on oxygen at 2-3 L NC. Kept HOB elevated. Dr. Curiel made aware. Per , MUSTAPHA planning to SNF instead of assisted living placement. CM aware, to arrange SNF placement once pt is stable for discharge.
[2018-06-21] VITALS: BP 138/64; PULSE 75; PULSE 77; RESP 18
[2018-06-21 04:00] VITALS: BP 129/74; PULSE 72; PULSE 77; RESP 18
--- NOTE | 2018-06-21 05:29 | NUR ---
eoss: No major event this shift. No neuro changes. No signs of respiratory distress. Hemodynamically stable. Repositioned per protocol. Safety measures followed. Chart reviewed. Plan of care remains the same. Will continue to monitor per protocol.
[2018-06-21 07:24] VITALS: BP 142/69; PULSE 62; RESP 18
[2018-06-21] MEDS: RIVAROXABAN 15 MG TABLET PO SCH (08:34)
[2018-06-21] MEDS: AMLODIPINE 5 MG TAB PO SCH (08:35)
[2018-06-21 08:55] VITALS: PULSE 67
--- NOTE | 2018-06-21 10:25 | NUR ---
GENNA DISCHARGE NOTES: Plan is for pt to go to [facility] [phone] bed confirmed by Christian from admitting for today. Pt's PCP to follow at [facility]. [facility] [phone] on will-call (TRIP #: [id number]). Transfer/Amb/IMM Forms completed and in chart. Dr. Curiel and Rivka VIRK made aware. Will followup as needed. Delbert VAIL [phone] Addendum: 06/21/18 at 1105 by DELBERT FIELDS RN, CM ADULT NEUROPSYCHOLOGIST TIME AT 2:15PM. RIVKA VIRK MADE AWARE.
[2018-06-21] MEDS ORDERED: RIVA20TA5 PO (10:52)
[2018-06-21] MEDS ORDERED: RIVA15TA PO (10:52)
[2018-06-21] MEDS ORDERED: CEFTRIAXONE 1 GM/50 ML (PMX) 50 ML IVPB ONE (11:00)
[2018-06-21 11:07] VITALS: BP 138/90; PULSE 65; RESP 18
[2018-06-21 13:14] VITALS: PULSE 84
--- NOTE | 2018-06-21 13:18 | NUR ---
WOUND CONSULT: 83 year old female admitted with Pulmonary embolism causing hypoxia per record. Patient awake, alert, oriented. WBC 7. H&H 11.8/35.7. Plt 156. Albumin 2.5. Nasal cannula. Incontinent. Moderate assist to turn. ASSESSMENT: - Sacrococcyx skin intact with mild redness related to incontinent. - Bilateral heels intact. No redness at this time. RECOMMENDATIONS: - Sacrococcyx: Cover with foam border dressing for protection. Change every 3 days. Assess skin under dressing every shift. - Bilateral heels and ankles: Cover with Allevyn heels for protection. Change every 3 days. Assess skin under dressing every shift. - Reposition every 2 hours. - Float heels off bed with pillows. - Pericare with barrier cream for each incontinent episode. Discussed assessment and plan of care with RNJessica. Mayra Bains, BSN RN CWOCN
--- NOTE | 2018-06-21 14:21 | NUR ---
RN NOTES Pt transferring to [facility], report given to Sarahy VIRK. Cuurent POC carried out by this RN and is now relinquished, discussed, reviewed and was clarified with receiving RN. All questions answered. Tele monitor and IV dc'd. Belongings intact and returned to the pt. Pt will be transferred via ambulance.
--- NOTE | 2018-06-21 15:17 | DS ---
Date/Time of Note Date/Time of Note DATE: 06/21/18 TIME: 15:14 Discharge Summary Admission/Discharge Info Admit Date/Time Jun 18, 2018 at 17:26 Discharge Date/Time Jun 21, 2018 at 14:21 Discharge Diagnosis 1. Pulmonary embolism causing hypoxia: -Continue Xarelto upon DC -Continues to require supplemental O2 -DC to a snf facility 2. МАРИНА: - Resolved 3. H/o thyroidectomy: -No acute issues 4. Hypertension: - Amlodipine 5. Dementia with debility -Patient is too low functioning for return to assisted living and requires long term placement Patient Condition: Fair Hospital Course Patient is a 83 yo female with dementia, hypertension who presents with pulmonary embolism and hypoxia. Patient was started on Xarelto and did require supplemental O2. Patient came from a [facility] and was too low functioning to return hence case management arrange for long term placement. Patient was stable for DC to a snf facility, on the day of discharge patient's vitals, labs and physical exam are stable. Home Meds Active Scripts Rivaroxaban* (Xarelto*) 20 Mg Tablet, 20 MG PO WITH DINNER for 90 Days, TAB Prov:ELBA DUMAS 06/21/18 Rivaroxaban* (Xarelto*) 15 Mg Tablet, 15 MG PO BID WITH MEALS for 18 Days, TAB Prov:ELBA DUMAS 06/21/18 Reported Medications Zolpidem Tartrate* (Zolpidem Tartrate*) 5 Mg Tablet, 5 MG PO QHS PRN for INSOMNIA, #30 TAB 06/18/18 Acetaminophen* (Acetaminophen*) 650 Mg Tablet, 650 MG PO Q4 PRN for PAIN AND OR ELEVATED TEMP, #30 TAB 06/18/18 Memantine* (Namenda*) 10 Mg Tablet, 10 MG PO DAILY, #30 TAB 06/18/18 Losartan Potassium* (Losartan Potassium*) 50 Mg Tablet, 50 MG PO DAILY, TAB 06/18/18 Esomeprazole Magnesium (Esomeprazole Magnesium) 40 Mg Capsule.dr, 40 MG PO BEFORE BREAKFAST, #30 CAP 06/18/18 Bisacodyl* (Bisacodyl*) 5 Mg Tablet.dr, 5 MG PO DAILY PRN for CONSTIPATION, TAB 06/18/18 Amlodipine Besylate* (Amlodipine Besylate*) 5 Mg Tablet, 5 MG PO DAILY, #30 TAB 06/18/18 Follow-up Plan Follow-up with physicians at the snf facility Primary Care Provider Not On Staff Doctor Time spent on discharge: > 30 minutes ELBA DUMAS Jun 21, 2018 15:17
== END 2018-06-21 14:21 | DRG 176 ==
LOC: E/R 14:02 → 6WM 17:26
PROVIDERS: ADMIT Internal Medicine; ATTEND Internal Medicine
PROC: 4A033R1 Measurement of Arterial Saturation, Peripheral, Percutaneous Approach (ICD-10-PCS; principal; 2018-06-18)
DX: I26.99 Other pulmonary embolism without acute cor pulmonale (principal); N17.9 Acute kidney failure, unspecified; N39.0 Urinary tract infection, site not specified; R09.02 Hypoxemia; R53.81 Other malaise; F03.90 Unspecified dementia, unspecified severity, without behavioral disturbance, psychotic disturbance, mood disturbance, and anxiety
CPT/HCPCS: 36415; 36600; 71045; 71275; 80053; 81001; 82803; 83036; 83605; 83880; 84484; 85025; 85610; 85730; 87040; 87081; 87086; 87400; 93005; 96374; 96375; J0692; J0696; J3370; J7030; Q9967